=== PATIENT | female | born 1960 | race Caucasian/White ===

== ENCOUNTER 2018-11-17 14:37 | Emergency (ER) | payer BC, SELFPAY ==
--- NOTE | 2018-11-17 14:42 | NUR.NOTE ---
Nursing Note: pt states she was discharged from [facility] on the 12th post laproscopic removal of adhesions. yesterday PT had blood work drawn at PCP results today showed that her bilirubin of 4.6 as well as elevated liver levels bilirubin pt called [facility] with these results and was told to go to the ER
[2018-11-17 14:47] VITALS: BP 139/103; PULSE 72; RESP 16; TEMP 37; O2SAT 99
--- NOTE | 2018-11-17 14:49 | NUR.NOTE ---
Nursing Note: pt has a history of elevated liver enzymes post Sanjana in 2012
[2018-11-17 16:03] LABS: Bilirubin Negative (Negative); Blood Negative (Negative); Clarity Clear (Clear); Glucose Negative (Negative); Ketones Negative (Negative); Leukocyte Esterase Negative (Negative); Nitrite Negative (Negative); Urobilinogen 0.2 EU/dL (Up TO 0.2)
[2018-11-17 16:31] LABS: Absolute Basophil Count 0.03 k/cumm (0.0-0.2); Absolute Eosinophil Count 0.43 k/cumm (0.0-0.7); Absolute Lymphocyte Count 1.07 k/cumm (1.2-3.4); Absolute Monocyte Count 0.32 k/cumm (0.11-0.7); Absolute Neutrophil Count 3.16 k/cumm (1.2-6.7); Basophils % 0.6; Eosinophils % 8.6; HCT 41.6 % (36.0-46.0); HGB 14.9 g/dL (12.0-15.5); Lymphocytes % 21.4; Mean Corp. HGB Concentration 35.8 g/dL (32.0-36.0); Mean Corpuscular Hemoglobin 31.2 pg (27.0-33.0); Mean Corpuscular Volume 87.2 fL (80-95); Mean Platelet Volume 10.2 fL (8.0-11.0); Monocytes % 6.4; Platelet Count 225 x1000/uL (130-400); RBC 4.77 m/cumm (4.00-5.20); RBC Distribution Width 12.5 % (11.7-14.6); White Blood Cell Count 5.01 k/cumm (4.4-10.8)
[2018-11-17 16:49] LABS: ALT 555 U/L (12-78); AST 165 U/L (15-37); Albumin 3.8 g/dL (3.4-5.0); Alkaline Phosphatase 538 U/L (46-116); Anion Gap 10.9 mmol/L (3-11); BUN 2 mg/dL (7-18); Bilirubin, Total 3.9 mg/dL (0.2-1.0); CO2 27.1 mmol/L (21.0-32.0); CREATININE 0.78 mg/dL (0.55-1.02); Calcium 9.3 mg/dL (8.5-10.1); Chloride 92 mmol/L (98-107); Glucose 129 mg/dL (70-100); Lipase 112 U/L (73-393); Sodium 130 mmol/L (136-145); Total Protein 7.1 g/dL (6.4-8.2)
--- NOTE | 2018-11-17 16:54 | DI.CT_ITS ---
SYMPTOM/DIAGNOSIS: ELEVATED BILIRUBIN, S/P LAP ADHESIOLYSIS, RECENT SMALL BOWEL OBSTRUCTION ABDOMEN AND PELVIC CT: CT examination of the abdomen and pelvis was performed with a bolus infusion of 100 cc's of Omnipaque 350. Images obtained through the lung bases are unremarkable. The patient has reportedly had recent laparoscopic adhesiolysis and there is a small quantity of gas in the soft tissues at the umbilicus and mild mesenteric and subcutaneous fat stranding consistent with this recent procedure. No free air identified in the peritoneal cavity. No evidence of obstruction. Normal appendix. There is a small quantity of free pelvic fluid which is nonspecific and which may also be associated with recent surgery. [employer] structures appear intact for this age group. Presumed hepatic and left renal cysts noted. Otherwise liver, spleen, pancreas, adrenals and kidneys are unremarkable. No biliary dilatation is seen. Abdominal aorta is of normal diameter and no major vascular abnormality is seen. No abdominal or pelvic adenopathy. CONCLUSION: Post laparoscopic changes as described above. No evidence of acute pathology.
--- NOTE | 2018-11-17 17:00 | W.ED.GENAD ---
Discharge Plan Disposition Patient Disposition: AGAINST MEDICAL ADVICE Condition: Improving Discharge Details Chief Complaint: GenMedical Clinical Impression: Hyperbilirubinemia, Transaminitis, S/P laparoscopic procedure Primary Care Provider: Zain Lutz ED Provider: Vaishnavi Briseno Home Meds and New Rx's Prescriptions: New ondansetron HCl [Zofran] 4 mg tablet 4 mg PO Q8H PRN (Reason: nausea and vomiting) Qty: 7 RF: 0 Continued atenolol 25 mg Tablet 25 mg PO BID RF: 0 diphenhydramine HCl [Benadryl] 25 mg Capsule 25 mg PO QHS RF: 0 gabapentin 100 mg Capsule 100 mg PO BID RF: 0 lorazepam 1 mg Tablet 1 mg PO BID PRNRF: 0 fluticasone propionate [Flonase Allergy Relief] 50 mcg/actuation [place],Suspension 1 spray INTRANASAL DAILY RF: 0 Discharge Instructions Instructions: Abdominal Pain (ED) Additional Instructions: Follow-up with your scheduled appointment with your primary care doctor on Monday for reevaluation and for recheck of your bilirubin and liver enzymes. Return immediately to the emergency department if you develop any worsening or new concerning symptoms such as fever, increased pain, persistent nausea or vomiting. Discharge Data Discharge Physician: Vaishnavi Briseno Medical Decision Making 58-year-old female who is 5 days status post laparoscopic adhesiolysis at [facility] for history of small bowel obstruction due to hysterectomy in 2013 who presents for fever, orange-colored urine, and nausea for the past few days. States her pain is improving. She appears nontoxic. Vitals within normal limits. Her abdomen is soft and minimally tender around incision sites. 1800 -- Labs and imaging reviewed. White blood cell count 5. Total bili 3.9. AST 165. ALT 555. Alk phos 538. Urinalysis negative. CT noted minimal free fluid and presumed postsurgical changes of the periumbilical level. Will page [facility] surgery for recommendations. 1909 --discussed with [facility] -surgeon will not be able to call back until another 50 minutes after finishing procedure. 1929 --review of patient's lab work from her PCP office note that her T bili was 4.6, her AST was 300s, her ALT was 709, her alk phos was 493. 2044 --discussed case with [facility] surgery -possible differential diagnosis can include a recently passed gallstone, resolving hepatitis flare, and less likely cholangitis or choledocholithiasis. They do not believe her hyperbilirubinemia and transaminitis is related to her recent surgery as he did not go near the gallbladder or bile ducts for lysis of adhesions. Recommends either transferred to [facility] for observation or can be admitted here overnight for observation and recheck on labs in the morning. Suspect most likely her labs will improve as they already appeared to be improving. Patient is refusing admission to the hospital. She states she feels much better and would rather go home with plan for follow-up with her primary care doctor on Monday. The risks of and disability due to a possible serious pathology were explained and she fully understands these risks and demonstrates capacity make decisions. AMA form signed. She is advised and encouraged to return here with any worsening or new concerning symptoms but otherwise follow-up with her primary care doctor on Monday for reevaluation and for repeat lab work. Medical Records Medical records reviewed: Yes I reviewed the patient's medical records. HPI General Mode of arrival: ambulatory. Date/Time Provider Initiated Documentation: 11/17/18 15:23. Limitations to Documentation: no limitations. Information obtained by: patient. HPI Narrative: Patient is a 58-year-old female who is 5 days status post a laparoscopic adhesiolysis procedure at [facility] for history of small bowel obstruction status post hysterectomy who presents with elevated bilirubin and liver function tests noted on lab work per PCP office yesterday. She states she saw her primary care doctor yesterday for development of a fever 1 day this week at 100.7, as well as orange-colored urine, as well as nausea. She states her fever and orange-colored urine is now resolved. She states her pain is improving. She states she called [facility] surgery today and they advised her to return to [facility] or to an emergency department. Patient states she was on her way to [facility] when she became nauseous and decided to come to the ER here. Related Data Home Medications Medication Instructions Recorded Confirmed atenolol 25 mg PO BID 11/17/18 11/17/18 diphenhydramine HCl [Benadryl] 25 mg PO QHS 11/17/18 11/17/18 fluticasone propionate [Flonase 1 spray INTRANASAL DAILY 11/17/18 11/17/18 Allergy Relief] gabapentin 100 mg PO BID 11/17/18 11/17/18 lorazepam 1 mg PO BID PRN 11/17/18 11/17/18 ondansetron HCl [Zofran] 4 mg PO Q8H PRN #7 tab 11/17/18 Previous Rx's Medication Instructions Recorded ondansetron HCl [Zofran] 4 mg PO Q8H PRN #7 tab 11/17/18 Allergies Allergy/AdvReac Type Severity Reaction Status Date / Time amoxicillin [From Augmentin] Allergy Severe Hives Unverified 11/17/18 14:52 clavulanic acid Allergy Severe Hives Unverified 11/17/18 14:52 [From Augmentin] cefazolin AdvReac Mild Unverified 11/17/18 14:52 General Stated Complaint: GenMedical APARNA: 3 Review of Systems Review of Systems All systems reviewed & are unremarkable except as noted in HPI and below Constitutional Reports as per HPI, Denies chills and Denies fever(s) Eyes Denies blurry vision ENT Denies dizziness, Denies sore throat and Denies throat swelling Cardiovascular Denies chest pain and Denies dyspnea Respiratory Denies cough and Denies dyspnea Gastrointestinal Denies abdominal pain, Denies diarrhea, Reports nausea and Denies vomiting Genitourinary Denies hematuria and Denies dysuria Musculoskeletal Denies back pain and Denies numbness Integumentary/Breasts Denies lesions and Denies rash Neurologic Denies dizziness, Denies focal weakness and Denies numbness Allergic/Immunologic Denies throat swelling [facility] Medical History Liver cyst (Acute) Small bowel obstruction (Acute) Surgical History Adhesion of intestine (Acute) History of hysterectomy (Chronic) History of knee surgery (Acute) Social History Smoking/Tobacco Use Status: Never Alcohol Intake: current Alcohol Intake frequency: a few times a week Substance use type: does not use Exam Const General: cooperative, healthy appearing and no acute distress HENMT Head: normal to inspection Face and sinus: normal facial exam Eyes General: appearance normal, both eyes and all related structures Sclera: scleral abnormality bilaterally other (minimal scleral icterus) Pupils: PERRL EOM: EOM intact bilaterally Neck Neck: normal visual inspection and No submandibular swelling Lymphatic: no lymphadenopathy noted Chest Chest: normal inspection of the chest and no tenderness Resp Effort & Inspection: normal respiratory effort and able to speak in complete sentences Auscultation: clear to auscultation bilaterally Cardio Rate: regular rate Rhythm: regular rhythm GI Inspection: normal to inspection Palpation: soft, not firm, not rigid and tender (Minimal tenderness around incision sites otherwise belly soft) Auscultation: hypoactive bowel sounds Skin General skin exam: no rashes or lesions noted Neuro General: alert, awake and oriented x3 Cognition: normal cognition Speech: speech normal Motor: muscle tone normal throughout Sensory Exam: no sensory deficits noted Extrem General: normal to inspection, full ROM, normal capillary refill, no calf tenderness bilaterally and no edema Psych Appearance: grossly normal Mental Status: mental status grossly normal Speech and Movement: speech and movement normal Affect: normal affect Course Vital Signs Temperature 98.6 F 11/17/18 14:47 Pulse 72 11/17/18 14:47 Respiratory Rate 16 11/17/18 14:47 Blood Pressure 139/103 H 11/17/18 14:47 Pulse Oximetry 99 11/17/18 14:47 Temperature 98.6 F 11/17/18 14:47 Temperature Source Skin 11/17/18 14:47 Pulse 72 11/17/18 14:47 Respiratory Rate 16 11/17/18 14:47 Respiratory Effort Non-Labored 11/17/18 15:24 Respiratory Depth Normal 11/17/18 15:24 Respiratory Pattern Normal 11/17/18 15:24 Blood Pressure 139/103 H 11/17/18 14:47 Blood Pressure Position Supine 11/17/18 14:47 Pulse Oximetry 99 11/17/18 14:47 Oxygen Delivery Method Room Air 11/17/18 14:47 Oxygen Flow Rate 0 11/17/18 14:47 Pain Level 2 11/17/18 14:47 Lab/Test Results Lab/Test Results: Laboratory Tests Range/Units 11/17/18 11/17/18 11/17/18 16:00 16:20 16:20 WBC (4.4-10.8) k/cumm 5.01 RBC (4.00-5.20) m/cumm 4.77 Hgb (12.0-15.5) g/dL 14.9 Hct (36.0-46.0) % 41.6 MCV (80-95) fL 87.2 MCH (27.0-33.0) pg 31.2 MCHC (32.0-36.0) g/dL 35.8 RDW (11.7-14.6) % 12.5 Plt Count (130-400) x1000/uL 225 MPV (8.0-11.0) fL 10.2 Immature Gran % 0.0 Neutrophils % 63.0 Lymphocytes % 21.4 Monocytes % 6.4 Eosinophils % 8.6 Basophils % 0.6 Absolute Neutrophils (1.2-6.7) k/cumm 3.16 Absolute Lymphocytes (1.2-3.4) k/cumm 1.07 L Absolute Monocytes (0.11-0.7) k/cumm 0.32 Absolute Eosinophils (0.0-0.7) k/cumm 0.43 Absolute Basophils (0.0-0.2) k/cumm 0.03 Sodium (136-145) mmol/L 130 L Potassium (3.5-5.1) mmol/L 4.0 Chloride (98-107) mmol/L 92 L Carbon Dioxide (21.0-32.0) mmol/L 27.1 Anion Gap (3-11) mmol/L 10.9 BUN (7-18) mg/dL 2 L Creatinine (0.55-1.02) mg/dL 0.78 Estimated GFR/1.73 m2 (mL/min/1.73m2) >= 60.00 Glucose (70-100) mg/dL 129 H Calcium (8.5-10.1) mg/dL 9.3 Total Bilirubin (0.2-1.0) mg/dL 3.9 H AST (15-37) U/L 165 H ALT (12-78) U/L 555 H Alkaline Phosphatase (46-116) U/L 538 H Total Protein (6.4-8.2) g/dL 7.1 Albumin (3.4-5.0) g/dL 3.8 Lipase (73-393) U/L 112 Urine Color (Yellow) Yellow Urine Clarity (Clear) Clear Urine pH (5-8) 7.0 Ur Specific [place]anger (1.005-1.025) 1.010 Urine Protein (Negative) mg/dL Negative Urine Ketones (Negative) mg/dL Negative Urine Blood (Negative) Negative Urine Nitrite (Negative) Negative Urine Bilirubin (Negative) Negative Urine Urobilinogen (Up TO 0.2) EU/dL 0.2 Ur Leukocyte Esterase (Negative) Negative Urine Glucose (Negative) mg/dL Negative
[2018-11-17] MEDS: Omnipaque 350 MG/ML 100 ML BTL IJ (17:19)
--- NOTE | 2018-11-17 17:48 | DI.VRAD_ITS ---
EXAM: CT Abdomen and Pelvis With Contrast EXAM DATE/TIME: 11/17/2018 4:56 PM CLINICAL HISTORY: 58 years old, female; Other: Pain TECHNIQUE: Imaging protocol: Axial computed tomography images of the abdomen and pelvis with intravenous contrast. Coronal and sagittal reformatted images were created and reviewed. COMPARISON: No relevant prior studies available. FINDINGS: Mediastinum: Small hiatal hernia. Liver: Left and right lobe hepatic low density lesions consistent with cysts. Gallbladder and bile ducts: Normal. No calcified stones. No ductal dilation. Pancreas: Normal. No ductal dilation. Spleen: Normal. No splenomegaly. Adrenals: Normal. No mass. Kidneys and ureters: Left renal cysts. Stomach and bowel: Normal. No obstruction. No mucosal thickening. Appendix: Appendix is well seen, within normal limits. Intraperitoneal space: There is a small amount of free fluid present in the pelvis. Vasculature: Normal. No abdominal aortic aneurysm. Lymph nodes: Normal. No enlarged lymph nodes. Bladder: Unremarkable as visualized. Reproductive: Unremarkable as visualized. Bones/joints: No acute fracture. No dislocation. Soft tissues: Small amounts of air are noted at the periumbilical level with small, fat-containing hernia. Clinical correlation requested with respect to recent laparoscopic procedure. There is some soft tissue stranding in the pelvic mesentery with surgical clip consistent with recent surgery. IMPRESSION: Minimal free fluid. Presumed postsurgical change of the periumbilical level. COMMENT: Preliminary interpretation is based on receipt of 305 image(s). A final report will be issued subsequently. Dictated and Authenticated by: Meaghan Spaulding MD. Ordering:LANI Riggins MD
[2018-11-17 18:58] VITALS: BP 123/70; PULSE 68; RESP 18; TEMP 36.8; O2SAT 98
[2018-11-18 03:37] VITALS: BP 123/70; PULSE 68; RESP 18; O2SAT 98
== END 2018-11-17 21:08 | disposition left against medical advice (07) ==
PROVIDERS: Emergency Provider Physician Assistant; PCP Physician Assistant
DX: E80.6 Other disorders of bilirubin metabolism (principal); R74.0 Nonspecific elevation of levels of transaminase and lactic acid dehydrogenase [LDH]; Z98.890 Other specified postprocedural states
CPT/HCPCS: 36415; 80053; 83690; 99285; 74177; 81003; 85025; 99284; J3490

== ENCOUNTER 2018-11-28 01:55 | Outpatient (CLI) | payer BC, SELFPAY ==
--- NOTE | 2018-11-28 07:00 | DI.US_ITS ---
SYMPTOM/DIAGNOSIS: HEPATIC FAILURE, F/U HEPATIC CYSTS ABDOMEN ULTRASOUND: Comparison CT scan is 11/17/18. The abdominal aorta is of normal caliber. The inferior vena cava is unremarkable. The liver is normal in size measuring 16.4 cm. There is a simple hepatic cyst seen in the left lobe of the liver measuring 5.2 by 3.1 by 4.5 cm. The second cyst in the caudal aspect of the right lobe of the liver was appreciated on the CT scan from 11/17/18 and measures 2.6 by 2.4 cm. No suspicious hepatic lesions are seen. The main portal vein is hepatopetal in flow. The gallbladder is unremarkable. No gallbladder wall thickening, sludge or pericholecystic fluid is seen. No stones are present. The common duct is within normal limits at .3 cm. The visualized portions of the pancreas are unremarkable. The pancreatic tail was not well seen due to overlying bowel. The spleen is normal in size. The kidneys are unremarkable except for a small 1 cm. cyst in the left kidney. This was identified on the CT scan from 11/17/18. IMPRESSION: 1. Hepatic cysts. 2. Left renal cyst.
== END 2018-11-28 02:15 ==
PROVIDERS: PCP Internal Medicine; Visit Provider Internal Medicine
DX: K72.90 Hepatic failure, unspecified without coma (principal); K76.89 Other specified diseases of liver; N28.1 Cyst of kidney, acquired
CPT/HCPCS: 76705

== ENCOUNTER 2018-11-29 10:17 | Outpatient (CLI) | payer BC, SELFPAY ==
[2018-11-29 11:40] LABS: ALT 95 U/L (14-59); AST 16 U/L (15-37); Alkaline Phosphatase 228 U/L (46-116); Anion Gap 8.9 mmol/L (3-11); BUN 14 mg/dL (7-18); Bilirubin, Total 0.7 mg/dL (0.2-1.0); CO2 28.1 mmol/L (21.0-32.0); CREATININE 0.83 mg/dL (0.55-1.02); Calcium 9.5 mg/dL (8.5-10.1); Chloride 100 mmol/L (98-107); Glucose 150 mg/dL (70-100); Potassium 4.6 mmol/L (3.5-5.1); Sodium 137 mmol/L (136-145); Total Protein 6.7 g/dL (6.4-8.2)
== END 2018-11-29 10:37 ==
PROVIDERS: PCP Internal Medicine; Visit Provider Internal Medicine
DX: K75.89 Other specified inflammatory liver diseases (principal)
CPT/HCPCS: 36415; 80053

== ENCOUNTER 2019-08-23 02:04 | Outpatient (CLI) | payer BC, SELFPAY ==
--- NOTE | 2019-08-23 | DI.US_ITS ---
EXAM: US PELVIS TRANSVAGINAL CLINICAL HISTORY: LLQ PAIN. TECHNIQUE: Transabdominal and transvaginal pelvic ultrasound was performed using standard protocol. COMPARISON: No exams were available for comparison FINDINGS: KIDNEYS: Kidneys are symmetric in size. No evidence of renal calculi. No evidence of hydronephrosis. No renal mass or cyst identified. UTERUS: Status post hysterectomy. OVARIES: Right: 1.6 x 1.1 x 1.1 cm Cyst or mass: None. Left: 1.6 x 0.9 x 1.0 cm Cyst or mass: None. DOPPLER: Color: Symmetric and uniform flow to both ovaries. No hyperemia. Duplex: Normal ovarian arterial waveforms visualized. CUL-DE-SAC: Free fluid: None. Other: None. IMPRESSION: 1. Normal sonographic appearance of the kidneys. 2. Status post hysterectomy. 3. Unremarkable bilateral ovaries. DATA REPOSITORY:
== END 2019-08-23 02:24 ==
PROVIDERS: PCP Internal Medicine; Visit Provider Internal Medicine
DX: R10.32 Left lower quadrant pain (principal)
CPT/HCPCS: 76830; 76856

== ENCOUNTER 2019-10-21 01:41 | Outpatient (CLI) | payer BC, SELFPAY ==
--- NOTE | 2019-10-21 | DI.US_ITS ---
EXAM: US ABDOMEN LIMITED CLINICAL HISTORY: LLQ ABD PAIN, R10.9 TECHNIQUE: Ultrasound performed using standard protocol. COMPARISON: No exams were available for comparison FINDINGS: The left lower quadrant abdominal wall was evaluated sonographically. No abdominal wall defects are seen to suggest a hernia. No cystic or solid soft tissue masses are seen sonographically. IMPRESSION: Negative examination. DATA REPOSITORY:
--- NOTE | 2019-10-21 | DI.US_ITS ---
EXAM: US HERNIA CLINICAL HISTORY: LT GROIN PAIN, ? VENTRAL HERNIA. TECHNIQUE: Ultrasound was performed using standard protocol. COMPARISON: CT CT ABDOMEN PELVIS W from 11/17/2018 FINDINGS: Sonographic assessment utilizing grayscale and color Doppler imaging was performed and targeted to th e area of clinical concern. There is a fat containing umbilical hernia present. The neck of the defect in the anterior abdominal wall measures 1.5 cm. IMPRESSION: DATA REPOSITORY:
== END 2019-10-21 02:01 ==
PROVIDERS: PCP Internal Medicine; Visit Provider Surgery
DX: R10.32 Left lower quadrant pain (principal); K42.9 Umbilical hernia without obstruction or gangrene
CPT/HCPCS: 76857; 76705

== ENCOUNTER 2019-11-26 03:25 | Outpatient (CLI) | payer BC, SELFPAY ==
[2019-11-26 10:23] LABS: Bilirubin Negative (Negative); Blood Negative (Negative); Clarity Cloudy (Clear); Glucose Negative (Negative); Ketones Negative (Negative); Leukocyte Esterase Negative (Negative); Nitrite Positive (Negative); Urobilinogen 0.2 EU/dL (Up TO 0.2); pH 7.5 (5-8)
[2019-11-26 10:32] LABS: Bacteria Many HPF (Negative); C & S Indicated? C&S Done As Ordered; Casts Negative LPF (Negative); Crystals Few Amorphous HPF (Negative); Epithelial Cells Few HPF (Negative); Mucus Negative (Negative); RBC 0-2 HPF (0-2)
[2019-11-26 12:07] LABS: ALT 22 U/L (14-59); AST 13 U/L (15-37); Alkaline Phosphatase 92 U/L (46-116); Anion Gap 1.9 mmol/L (3-11); BUN 16 mg/dL (7-18); Bilirubin, Total 0.6 mg/dL (0.2-1.0); CO2 31.1 mmol/L (21.0-32.0); CREATININE 0.81 mg/dL (0.55-1.02); Calcium 9.9 mg/dL (8.5-10.1); Chloride 102 mmol/L (98-107); Glucose 141 mg/dL (74-106); Potassium 5.5 mmol/L (3.5-5.1); Sodium 135 mmol/L (136-145); Total Protein 6.8 g/dL (6.4-8.2)
[2019-11-27 10:35] LABS: Hemoglobin A1C 6.5 % (3.8-5.6)
== END 2019-11-26 03:45 ==
PROVIDERS: PCP Internal Medicine; Visit Provider Internal Medicine
DX: K75.89 Other specified inflammatory liver diseases (principal); R73.9 Hyperglycemia, unspecified; R30.0 Dysuria
CPT/HCPCS: 36415; 80053; 87077; 81003; 81015; 83036; 87086; 87186

== ENCOUNTER 2020-01-24 13:13 | Outpatient (REF) | payer BC, SELFPAY | END 2020-01-24 13:33 | LOC: LBN 13:13 | PROVIDERS: PCP Internal Medicine; Visit Provider Internal Medicine | DX: K92.2 Gastrointestinal hemorrhage, unspecified (principal) | CPT/HCPCS: 82272 ==

== ENCOUNTER 2023-12-07 12:02 | Outpatient (CLI) | payer BC, SELFPAY ==
[2023-12-07 12:38] LABS: CREATININE 0.9 mg/dL (0.55-1.02); Estimated GFR 72.73 (mL/min/1.73m2)
== END 2023-12-07 12:03 | disposition home or self-care (01) ==
LOC: LBO 12:07
PROVIDERS: PCP Family Medicine; Visit Provider Otolaryngology
DX: R51.9 Headache, unspecified (principal); G89.29 Other chronic pain; H93.11 Tinnitus, right ear; H92.01 Otalgia, right ear
CPT/HCPCS: 36415; 82565